=== PATIENT | male | born 1950 | race Caucasian/White ===

== ENCOUNTER 2016-10-23 05:54 | Day surgery (SDC) | payer MEDICARE, OTHER ==
[~2016-10-23] VITALS: Ht 162.6 cm; Wt 87.4 kg
[2016-10-23] VITALS (9 sets, daily range): BP systolic 85–120; BP diastolic 53–78; PULSE 68–81; RESP 14–21; Ht 162.6 cm; Wt 87.4 kg
[~2016-10-23 05:54] MED LIST: [UNRECOGNIZED DRUG - REMARK]
[2016-10-23] MEDS ORDERED: CILOSTAZOL (07:02)
[2016-10-23] MEDS ORDERED: NEXIUM (07:02)
[2016-10-23] MEDS ORDERED: INDOMETHACIN (07:02)
[2016-10-23] MEDS ORDERED: ATORVASTATIN (07:02)
[2016-10-23] MEDS ORDERED: ASPIRIN (07:02)
[2016-10-23] MEDS ORDERED: PROPOFOL 40 ML ONE (07:38)
[2016-10-23] MEDS ORDERED: LIDOCAINE 2% (SDV) 5 ML INJ ONE (07:38)
--- NOTE | 2016-10-23 13:02 | GILP ---
DATE OF PROCEDURE: NAME OF PROCEDURES: Colonoscopy and biopsy. SURGEON: Juventino Anna MD PREOPERATIVE DIAGNOSES: 1. Screening colonoscopy. 2. Change in bowel habit. 3. Iron deficiency. POSTOPERATIVE DIAGNOSES 1. Colonoscopy all the way to the cecum. 2. Small rectal polyp was removed using the biopsy forceps. 3. Internal hemorrhoids. INDICATION FOR THE PROCEDURE: Mr. Toby Rucker is a 66-year-old male patient who noticed a ch parviz in the bowel habit, and he was found to have iron deficiency. He needed screening colonoscopy. The procedure and possible complications were well explained to the patient, he understood and conse nted to the procedure. DESCRIPTION OF PROCEDURE: Under the influence of anesthesia, the colonoscope was carefully introduc ed in the rectum and under direct vision, it was advanced all the way to the cecum. FINDINGS: The patient had a rectal polyp and it was removed using the biopsy forceps. He also had internal hemorrhoids. He tolerated the procedure very well and there was no complication from the procedure. At the end o f the procedure, he was awake with stable vital signs, and he was discharged home to the care of his family. IMPRESSION: 1. Colonoscopy all the way to the cecum. 2. Small rectal polyp was removed using the biopsy forceps. 3. Internal hemorrhoids. PLAN: 1. Await histopathology report. 2. Next screening colonoscopy in 10 years. Dictated By: JUVENTINO MENDOZA/FAVIAN Conf#: [id number] DID#: [id number]
== END 2016-10-23 08:20 | disposition home or self-care (01) ==
LOC: GIL 05:54
PROVIDERS: ATTEND Internal Medicine Gastroenterology
DX: Z12.11 Encounter for screening for malignant neoplasm of colon (principal); K62.1 Rectal polyp; K64.8 Other hemorrhoids
CPT/HCPCS: 88305